=== PATIENT | female | born 1975 | race Caucasian/White ===

== ENCOUNTER 2017-01-12 09:34 | Inpatient (IN) ==
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
[2017-01-12] MEDS ORDERED: LACTATED RINGERS 1,000 ML IV ONE ×2 (10:23→10:53)
[2017-01-12] MEDS ORDERED: HYDROmorphone 2 MG/ML SYRINGE IV ONE (10:39)
[2017-01-12] MEDS ORDERED: ACETAMINOPHEN 500 MG TABLET PO ONE (10:39)
[2017-01-12] MEDS ORDERED: ONDANSETRON 4 MG/2 ML VIAL IV ONE (10:40)
[2017-01-12] MEDS ORDERED: cefTRIAXone 1 GM in DEXTROSE 5% IN WATER 50 ML IV ONE ×2 (10:42→14:15)
[2017-01-12] MEDS ORDERED: IBUPROFEN 600 MG TABLET PO ONE (10:43)
[2017-01-12 10:53] LABS: Mean Cell Volume 91.2 fL (80.0-100.0); Mean Corpuscular HGB Conc 33.2 g/dL (31.0-36.0); Mean Corpuscular Hemoglobin 30.2 pg (26.0-34.0); Platelet Count 394 K/mcL (140-440); RBC 4.43 M/mcL (4.00-5.20); Red Cell Distribution Width 14.8 % (11.5-14.5)
[2017-01-12 10:58] LABS: Appearance,Urine CLOUDY; Bacteria,Urine MOD /hpf (0); Bilirubin,Urine NEG (NEG); Color,Urine YELLOW; Glucose,Urine (UA) NEGATIVE (NEG); Leukocyte Esterase,Urine 500 /uL (NEG); Mucus,Urine MANY /hpf (0); Nitrate,Urine POS (NEG); Protein,Urine 100 mg/dL (NEG); Specific Gravity,Urine 1.017 (1.000-1.035); Urine Blood 0.2 mg/dL (<0.03); Urine RBC 20 /hpf (0-1); Urine Squamous Epithelial Cell 1 /hpf (0-4); Urine WBC > 182 /hpf (0-4)
[2017-01-12 11:09] LABS: ALT/SGPT 97 U/l (0-40); Albumin 3.8 gm/dL (3.2-5.2); Albumin/Globulin Ratio 1.1 (1.0-2.3); Alkaline Phosphatase 143 U/L (39-117); Blood Urea Nitrogen 12 mg/dl (6-20)
[2017-01-12] MEDS ORDERED: CIPROFLOXACIN 400 MG/200 ML BAG IV ONE (11:10)
[2017-01-12 11:33] LABS: C-Reactive Protein 35.1 mg/dl (0.0-0.8)
[2017-01-12 11:44] LABS: Anisocytosis FEW (NONE SEEN); Band Neutrophils % 17 % (0-10); Lymphocytes % 7 % (15-49); Monocytes % (Manual) 9 % (1-12); Platelet Estimate NORMAL (NORMAL); RBC Morphology ABNORM (NORMAL); Segmented Neutrophils % 67 % (38-78)
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
[2017-01-12] MEDS ORDERED: POTASSIUM CHLORIDE 20 MEQ in 0.9 % SODIUM CHLORIDE 1,000 ML IV SCH (13:44)
[2017-01-12] MEDS ORDERED: ONDANSETRON 4 MG/2 ML VIAL IV PRN (13:44)
[2017-01-12] MEDS ORDERED: ACETAMINOPHEN 325 MG TABLET PO PRN (13:44)
[2017-01-12] MEDS ORDERED: DOCUSATE SODIUM 100 MG CAPSULE PO PRN (13:44)
[2017-01-12] MEDS ORDERED: MAGNESIUM HYDROXIDE 30 ML ORAL.SUSP PO PRN (13:44)
[2017-01-12] MEDS: NACL 0.9% W/KCL 20MEQ 1,000 ML IV SCH ×2 (14:20→23:27)
--- NOTE | 2017-01-12 17:35 | Ultrasound Report ---
CLINICAL INFORMATION: Elevated white blood cell count, fever and tachycardia right flank pain COMPARISON: Abdomen and pelvic CT 10/22/2011 FINDINGS: Liver is mildly enlarged vertical dimension of 16.5 cm. No focal lesions but there is equivocal periportal triad edema. Gallbladder and bile ducts are normal CBD measures 4 mm. Both kidneys are mildly enlarged right is 13.7 x 7 cm the left is 12 x 6 cm. Parenchymal echotexture is elevated suggesting medical renal disease. The 2.5 cm complex fluid collection in the superior pole of the right kidney which may represent a renal abscess. 1.2 cm cyst is noted in the mid left kidney. The spleen is surgically removed but there is a 3.6 cm sessile three spleen which is unchanged from the previous CT. The pancreas aorta and IVC are normal. IMPRESSION: 2.5 cm complex fluid collection superior pole the right kidney which may represent a renal abscess. Suggest abdominal CT.If patient cannot tolerate IV contrast due to renal insufficiency, suggest abdominal MRI Elevated renal parenchymal echotexture compatible with medical renal disease. If patient cannot tolerate IV contrast acute renal insufficiency, suggest abdominal MRI Mild hepatic enlargement with possible periportal triad edema. This will also be assessed with either CT or MR. Splenectomy changes with accessory spleen stable from prior CT Interpreted and Authenticated by: Genaro Mistry 01/12/17
[2017-01-12] MEDS: 0.9 % SODIUM CHLORIDE 10 ML SYRINGE IV SCH ×2 (18:36→21:02)
[2017-01-12] MEDS ORDERED: KETOROLAC 15 MG/ML VIAL IV PRN (18:44)
[2017-01-12] MEDS ORDERED: KETOROLAC 15 MG/ML VIAL ONE (19:26)
[2017-01-12] MEDS ORDERED: DOXYCYCLINE HYCLATE 100 MG TABLET.ORL PO SCH (21:00)
[2017-01-12] MEDS ORDERED: HEPARIN 5,000 UNIT/ML VIAL SQ SCH (21:00)
[2017-01-13] MEDS ORDERED: NACL 0.9% W/KCL 20MEQ 1,000 ML IV SCH ×3 (00:31→03:41)
[2017-01-13] MEDS ORDERED: 0.9 % SODIUM CHLORIDE 500 ML IV ONE (00:43)
[2017-01-13 01:34] LABS: Mean Cell Volume 90.3 fL (80.0-100.0); Mean Corpuscular HGB Conc 33.8 g/dL (31.0-36.0); Mean Corpuscular Hemoglobin 30.5 pg (26.0-34.0); Platelet Count 295 K/mcL (140-440); RBC 3.45 M/mcL (4.00-5.20); Red Cell Distribution Width 14.9 % (11.5-14.5)
[2017-01-13 01:56] LABS: ALT/SGPT 56 U/l (0-40); Albumin 2.7 gm/dL (3.2-5.2); Alkaline Phosphatase 132 U/L (39-117); Bilirubin,Direct 0.4 mg/dL (0.0-0.3); Blood Urea Nitrogen 14 mg/dl (6-20); Gamma Glutamyl Transpeptidase 26 U/L (5-36); Magnesium 1.6 mg/dL (1.6-2.5); Uric Acid 2.2 mg/dL (2.5-8.0)
[2017-01-13 02:03] LABS: Anisocytosis 1+ (NONE SEEN); Band Neutrophils % 14 % (0-10); Lymphocytes % 9 % (15-49); Monocytes % (Manual) 1 % (1-12); Platelet Estimate NORMAL (NORMAL); RBC Morphology ABNORM (NORMAL); Segmented Neutrophils % 76 % (38-78)
[2017-01-13] MEDS ORDERED: KETOROLAC 15 MG/ML VIAL IV PRN ×2 (03:41→15:01)
[2017-01-13] MEDS ORDERED: NOREPINEPHRINE BITARTRATE 8 MG in 0.9 % SODIUM CHLORIDE 242 ML IV SCH (03:41)
[2017-01-13] MEDS ORDERED: ONDANSETRON 4 MG/2 ML VIAL IV PRN ×2 (03:41→15:01)
[2017-01-13] MEDS ORDERED: MAGNESIUM HYDROXIDE 30 ML ORAL.SUSP PO PRN ×2 (03:41→15:01)
[2017-01-13] MEDS ORDERED: 0.9 % SODIUM CHLORIDE 250 ML IV SCH (03:41)
[2017-01-13] MEDS ORDERED: DOCUSATE SODIUM 100 MG CAPSULE PO PRN ×2 (03:41→15:01)
[2017-01-13] MEDS ORDERED: ACETAMINOPHEN 325 MG TABLET PO PRN (03:41)
[2017-01-13] MEDS ORDERED: 0.9 % SODIUM CHLORIDE 1,000 ML IV ONE (03:53)
[2017-01-13] MEDS: NACL 0.9% W/KCL 20MEQ 1,000 ML IV SCH ×5 (04:31→22:57)
[2017-01-13] MEDS: 0.9 % SODIUM CHLORIDE 10 ML SYRINGE IV SCH ×3 (05:42→21:00)
[2017-01-13] MEDS ORDERED: NOREPINEPHRINE BITARTRATE 8 MG in 0.9 % SODIUM CHLORIDE 242 ML IV PRN ×2 (07:00→15:01)
[2017-01-13 07:02] LABS: Basophils # (Auto) 0 K/mcL (0.0-0.3); Basophils % (Auto) 0.1 % (0.0-2.0); Eosinophils # (Auto) 0.2 K/mcL (0.0-0.7); Granulocytes % (Auto) 82.1 % (38.0-78.0); Lymphocytes # (Auto) 2.3 K/mcL (1.5-4.8); Lymphocytes % (Auto) 10.2 % (15.5-49.0); Mean Corpuscular HGB Conc 33.8 g/dL (31.0-36.0); Mean Corpuscular Hemoglobin 30.8 pg (26.0-34.0); Monocytes # (Auto) 1.5 K/mcL (0.1-0.9); Monocytes % (Auto) 6.6 % (1.0-12.0); Platelet Count 294 K/mcL (140-440); RBC 3.35 M/mcL (4.00-5.20); Red Cell Distribution Width 14.8 % (11.5-14.5)
[2017-01-13 07:39] LABS: ALT/SGPT 57 U/l (0-40); Albumin 2.3 gm/dL (3.2-5.2); Albumin/Globulin Ratio 0.9 (1.0-2.3); Alkaline Phosphatase 108 U/L (39-117); Bilirubin,Direct 0.6 mg/dL (0.0-0.3); Blood Urea Nitrogen 13 mg/dl (6-20); Gamma Glutamyl Transpeptidase 28 U/L (5-36); Magnesium 1.4 mg/dL (1.6-2.5)
[2017-01-13] MEDS ORDERED: IOPAMIDOL 100 ML BOTTLE IJ ONE (08:05)
[2017-01-13] MEDS ORDERED: MAGNESIUM SULFATE 2 GM/50 ML BAG IV ONE (08:35)
--- NOTE | 2017-01-13 08:56 | Cat Scan Report ---
CLINICAL INFORMATION: Elevated white blood cell count, fever, vomiting and abdominal pain COMPARISON: Abdomen and pelvic CT from 10/22/2011. TECHNIQUE: Following enteric contrast, 80 cc of Isovue-300 were injected intravenously, and 60 seconds later, 2.5 mm helical slices were obtained from the mid heart through the subtrochanteric regions. Following reconstruction, 2.5 mm sagittal, coronal and axial reformatted images were processed and reviewed at bone, lung and soft tissue windows. Five minutes later, 5 mm helical slices were obtained from the mid heart through the kidneys and viewed at soft tissue windows. FINDINGS: Small bilateral pleural effusions are new from previous study. There is mild patchy airspace disease in both inferior lung bases which is likely atelectasis. The heart is normal in size without evidence of asymmetric right chamber enlargement.. Images through the abdomen show mild diffuse liver enlargement with decreased attenuation and portal triad edema - a new finding. There is also a [id number] amount of ascites within the abdomen and pelvis - most prominent in the deep true pelvis. No focal hepatic lesions. The gallbladder and bile ducts are normal: CBD is 5 mm. The pancreas, both adrenal glands, and left kidney are unremarkable. 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 There are numerous vague low-attenuation wedge-shaped regions throughout the cortex and medulla of the right kidney which has resulted in right renal enlargement. Findings are most compatible with severe pyelonephritis. No evidence of abscess. Both upper collecting systems, ureters and urinary bladder are normal. Images should the pelvis show urinary bladder to be normal. Uterus is anteverted and enlarged measuring 10 x 5.7 cm IUD is seen in the endometrial cavity. The myometrium shows shows low-attenuation suggesting adenomyosis. It is identical to the 2012 study. There is a 16 mm simple cyst in the left ovary. Bone windows show no osseous abnormality IMPRESSION: 1. Mild enlargement of the right kidney with multiple vague wedge-shaped low-attenuation regions scattered throughout the renal parenchyma - highly suspicious for severe right pyelonephritis. There is no evidence of abscess. 2. Mild hepatomegaly with diffuse decreased attenuation and moderate portal triad edema. This is likely related to primary hepatic inflammation (viral, drug related, hepatotoxins or primary steatohepatitis). The other potential cause for this pattern would be elevated right heart pressures resulting in congestive hepatopathy. Suggest echocardiogram to exclude this possibility. 3. Small/moderate ascites likely related to hepatocellular disease 4. Small bilateral pleural effusions and minor bibasilar airspace disease likely atelectasis 5. Moderately enlarged anteflexed uterus with low attenuation in the myometrium stable since 2012. Given the radiographic stability, this likely indicates adenomyosis and/or fibroids Interpreted and Authenticated by: Genaro Mistry 01/13/17
[2017-01-13] MEDS ORDERED: DOXYCYCLINE HYCLATE 100 MG TABLET.ORL PO SCH (09:00)
[2017-01-13] MEDS ORDERED: HEPARIN 5,000 UNIT/ML VIAL SQ SCH (09:00)
[2017-01-13] MEDS ORDERED: cefTRIAXone 2 GM in DEXTROSE 5% IN WATER 50 ML IV SCH ×2 (09:00)
[2017-01-13] MEDS ORDERED: FLU VACC QS2017-18 36MOS UP/PF 60 MCG/0.5 ML SYRINGE IM ONE (10:00)
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
[2017-01-13] MEDS: ACETAMINOPHEN 325 MG TABLET PO PRN (16:33)
[2017-01-13] MEDS: 0.9 % SODIUM CHLORIDE 250 ML IV SCH (16:34)
[2017-01-13] MEDS: CIPROFLOXACIN 400 MG/200 ML BAG IV SCH (17:03)
[2017-01-13] MEDS: DOXYCYCLINE HYCLATE 100 MG TABLET.ORL PO SCH (20:27)
[2017-01-13] MEDS: HEPARIN 5,000 UNIT/ML VIAL SQ SCH (20:36)
[2017-01-13] MEDS ORDERED: CYCLOBENZAPRINE 10 MG TABLET PO PRN (20:57)
[2017-01-13] MEDS ORDERED: LORazepam 0.5 MG TABLET PO PRN (20:58)
[2017-01-14] MEDS: ACETAMINOPHEN 325 MG TABLET PO PRN (03:59)
[2017-01-14] MEDS: NACL 0.9% W/KCL 20MEQ 1,000 ML IV SCH ×4 (05:05→19:46)
[2017-01-14] MEDS: 0.9 % SODIUM CHLORIDE 10 ML SYRINGE IV SCH ×3 (05:06→23:33)
[2017-01-14] MEDS: 0.9 % SODIUM CHLORIDE 250 ML IV SCH (05:06)
[2017-01-14 05:50] LABS: Basophils # (Auto) 0.1 K/mcL (0.0-0.3); Basophils % (Auto) 0.4 % (0.0-2.0); Eosinophils # (Auto) 0.3 K/mcL (0.0-0.7); Eosinophils % (Auto) 1.7 % (0.0-7.0); Granulocytes % (Auto) 75.8 % (38.0-78.0); Lymphocytes # (Auto) 2.4 K/mcL (1.5-4.8); Lymphocytes % (Auto) 15.2 % (15.5-49.0); Mean Cell Volume 91.7 fL (80.0-100.0); Mean Corpuscular HGB Conc 33.2 g/dL (31.0-36.0); Mean Corpuscular Hemoglobin 30.4 pg (26.0-34.0); Monocytes # (Auto) 1.1 K/mcL (0.1-0.9); Monocytes % (Auto) 6.9 % (1.0-12.0); Platelet Count 293 K/mcL (140-440); Red Cell Distribution Width 15.2 % (11.5-14.5)
[2017-01-14 06:21] LABS: ALT/SGPT 56 U/l (0-40); Albumin/Globulin Ratio 0.7 (1.0-2.3); Alkaline Phosphatase 144 U/L (39-117); Bilirubin,Direct 0.3 mg/dL (0.0-0.3); Blood Urea Nitrogen 12 mg/dl (6-20); Gamma Glutamyl Transpeptidase 42 U/L (5-36); Magnesium 1.9 mg/dL (1.6-2.5); Uric Acid 1.8 mg/dL (2.5-8.0)
[2017-01-14] MEDS ORDERED: cefTRIAXone 2 GM VIAL IV SCH ×2 (09:00)
[2017-01-14] MEDS: CIPROFLOXACIN 400 MG/200 ML BAG IV SCH ×2 (09:20→21:04)
[2017-01-14] MEDS: DOXYCYCLINE HYCLATE 100 MG TABLET.ORL PO SCH (09:20)
[2017-01-14] MEDS: HEPARIN 5,000 UNIT/ML VIAL SQ SCH ×2 (09:21→21:04)
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
[2017-01-14] MEDS ORDERED: MAGNESIUM HYDROXIDE 30 ML ORAL.SUSP PO PRN (14:22)
[2017-01-14] MEDS ORDERED: CYCLOBENZAPRINE 10 MG TABLET PO PRN (14:22)
[2017-01-14] MEDS ORDERED: 0.9 % SODIUM CHLORIDE 250 ML IV SCH (14:22)
[2017-01-14] MEDS ORDERED: LORazepam 0.5 MG TABLET PO PRN (14:22)
[2017-01-14] MEDS ORDERED: KETOROLAC 15 MG/ML VIAL IV PRN (14:22)
[2017-01-14] MEDS ORDERED: ONDANSETRON 4 MG/2 ML VIAL IV PRN (14:22)
[2017-01-14] MEDS ORDERED: DOCUSATE SODIUM 100 MG CAPSULE PO PRN (14:22)
[2017-01-14] MEDS ORDERED: FUROSEMIDE 20 MG/2 ML VIAL IV ONE ×2 (20:30→21:06)
[2017-01-15] MEDS: NACL 0.9% W/KCL 20MEQ 1,000 ML IV SCH ×3 (02:03→19:50)
[2017-01-15] MEDS: ACETAMINOPHEN 325 MG TABLET PO PRN (04:18)
[2017-01-15 04:57] LABS: Basophils # (Auto) 0.1 K/mcL (0.0-0.3); Basophils % (Auto) 0.4 % (0.0-2.0); Eosinophils # (Auto) 0.2 K/mcL (0.0-0.7); Eosinophils % (Auto) 1.1 % (0.0-7.0); Granulocytes % (Auto) 64.7 % (38.0-78.0); Lymphocytes # (Auto) 3.2 K/mcL (1.5-4.8); Lymphocytes % (Auto) 21.3 % (15.5-49.0); Mean Cell Volume 89.4 fL (80.0-100.0); Mean Corpuscular HGB Conc 33.5 g/dL (31.0-36.0); Monocytes # (Auto) 1.9 K/mcL (0.1-0.9); Monocytes % (Auto) 12.5 % (1.0-12.0); Platelet Count 317 K/mcL (140-440); RBC 3.83 M/mcL (4.00-5.20); Red Cell Distribution Width 15.6 % (11.5-14.5)
[2017-01-15 06:13] LABS: ALT/SGPT 61 U/l (0-40); Albumin 2.2 gm/dL (3.2-5.2); Albumin/Globulin Ratio 0.6 (1.0-2.3); Alkaline Phosphatase 180 U/L (39-117); Bilirubin,Direct < 0.2 mg/dL (0.0-0.3); Blood Urea Nitrogen 9 mg/dl (6-20); Gamma Glutamyl Transpeptidase 66 U/L (5-36); Magnesium 1.5 mg/dL (1.6-2.5); Uric Acid 2.4 mg/dL (2.5-8.0)
[2017-01-15] MEDS: 0.9 % SODIUM CHLORIDE 10 ML SYRINGE IV SCH ×3 (06:35→21:23)
[2017-01-15] MEDS: CIPROFLOXACIN 400 MG/200 ML BAG IV SCH ×2 (08:34→21:22)
[2017-01-15] MEDS: HEPARIN 5,000 UNIT/ML VIAL SQ SCH ×2 (08:34→21:22)
[2017-01-15] MEDS: cefTRIAXone 2 GM VIAL IV SCH (10:46)
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
[2017-01-15 17:46] LABS: Hepatitis A Antibody IgM NON REACTIVE (NEGATIVE); Hepatitis B Core IgM NON REACTIVE (NEGATIVE); Hepatitis B Surface Antigen NEGATIVE (NEGATIVE); Hepatitis C Virus Antibody NON REACTIVE (NEGATIVE)
[2017-01-16] MEDS: ACETAMINOPHEN 325 MG TABLET PO PRN (01:17)
[2017-01-16] MEDS: 0.9 % SODIUM CHLORIDE 10 ML SYRINGE IV SCH (05:30)
[2017-01-16 06:27] LABS: Basophils # (Auto) 0 K/mcL (0.0-0.3); Basophils % (Auto) 0.4 % (0.0-2.0); Eosinophils # (Auto) 0.1 K/mcL (0.0-0.7); Eosinophils % (Auto) 0.9 % (0.0-7.0); Lymphocytes % (Auto) 33.2 % (15.5-49.0); Mean Cell Volume 89.8 fL (80.0-100.0); Mean Corpuscular HGB Conc 33.6 g/dL (31.0-36.0); Mean Corpuscular Hemoglobin 30.2 pg (26.0-34.0); Monocytes # (Auto) 1.9 K/mcL (0.1-0.9); Monocytes % (Auto) 15.5 % (1.0-12.0); Platelet Count 325 K/mcL (140-440); RBC 3.56 M/mcL (4.00-5.20); Red Cell Distribution Width 15.9 % (11.5-14.5)
[2017-01-16 06:45] LABS: ALT/SGPT 43 U/l (0-40); Albumin 2.2 gm/dL (3.2-5.2); Albumin/Globulin Ratio 0.6 (1.0-2.3); Alkaline Phosphatase 145 U/L (39-117); Bilirubin,Direct < 0.2 mg/dL (0.0-0.3); Blood Urea Nitrogen 6 mg/dl (6-20); Gamma Glutamyl Transpeptidase 62 U/L (5-36); Magnesium 1.6 mg/dL (1.6-2.5); Uric Acid 2.4 mg/dL (2.5-8.0)
[2017-01-16] MEDS: NACL 0.9% W/KCL 20MEQ 1,000 ML IV SCH (07:08)
[2017-01-16] MEDS ORDERED: NACL 0.9% W/KCL 20MEQ 1,000 ML IV SCH (08:30)
[2017-01-16] MEDS: HEPARIN 5,000 UNIT/ML VIAL SQ SCH (09:37)
[2017-01-16] MEDS: CIPROFLOXACIN 400 MG/200 ML BAG IV SCH (09:37)
[2017-01-16] MEDS: cefTRIAXone 2 GM VIAL IV SCH (09:37)
--- NOTE | 2017-01-16 10:17 | Discharge Summary ---
Medical - DS: Prov Patient information: Note initiated : 01/16/17 at 10:17 am Patient: Duane Banegas a 41 y/o F admitted on 01/12/17 for Headache, Fever, Vomiting/Sepsis, UTI. Date of admission: 01/12/17 13:10 Discharge date: 01/16/17 Primary care physician: Raffi Valenzuela Admitting clinician: Nolvia Baker Consults: 01/12/17 11:37 Consult to Physician [CONS] Stat Comment: Consulting Provider: Nolvia Baker Reason For Exam: Physician to Consult 01/13/17 15:01 Consult to Physician [CONS] Routine Comment: pyelonephritis Consulting Provider: Colby Bryant Reason For Exam: Physician to Consult Attending physician on discharge: Nolvia Baker Medical - DS: Meds - Discharge Medications Prescriptions: cefTRIAXone [Rocephin] 2 gm IV Q24H #6 vial Ciprofloxacin HCl [Cipro] 500 mg PO BID #14 tab Corticotropin [Adrenocorticotrophic Hormone] 0.01 gm MC Q2W #1 powder Active and Home Medications: Discharge medications: Rocephin 2 g IV every 24 hours, 6 more days, then followed by 1 week of oral antibiotics. Ciprofloxacin 500 mg p.o. twice daily for 7 more days Tylenol 650 mg every 6 hours as needed Corticotropin, dosed per rheumatology Golimumab 12.5 mg, dosed per rheumatology Previous home Medications corticotropin SUB-Q 02/18/16 [History Confirmed 12/06/16 Last Taken Unknown] golimumab 12.5 mg/mL intravenous solution IV 04/02/16 [History Confirmed Last Taken Unknown] Medical - DS: Hosp Hospital course: Ms. Banegas is a 41 year old F January 12, 2017: History of present illness: Ms. Banegas is a 41 year old female with a history of ankylosing spondylitis, who has been on a series of immunosuppressive drugs over the course of her life, started feeling poorly a few days ago. She says over a day or so she developed fever, whole body myalgias, severe pain at the top of her head, which included pain in her right face, her right neck, her right chest, her right flank and right side of her abdomen. She has had some nausea but no vomiting. She also notes suprapubic tenderness. She also notes her urine seems to have had increased odor lately. Also, of note, her boyfriend was recently diagnosed with gonorrhea. She says she was not screened for this or treated for it. She denies any vaginal discharge. In the emergency room she was found to have a temperature of 101.6, and a white blood cell count of 31,000. She had brief hypotension, that responded to IV fluids. She was tachycardic as well. Urinalysis was suggestive of UTI. She otherwise notes that she has not been dizzy, and has had not had new eye symptoms. Her right ear has been aching a bit. She has not really had a sore throat or a cough. She denies any chest pain or palpitations or shortness of breath. She says she has chronically irregular bowel habits, and has not noticed any real change with constipation or diarrhea. She has an Mirena IUD in place, and is about due to have that changed. She says she really does not have regular menses anymore since that was placed. January 13: During the night, the patient's blood pressure drifted down, and nursing staff became very concerned that she was getting septic. They called a rapid response code, and gave her IV fluid boluses and checked labs and EKGs. I was not as concerned about her lower blood pressures, as her normal systolic blood pressure runs between 90 and 100. However, she was feeling quite poorly, so was ultimately moved to the intensive care unit for closer monitoring. I did order levo fed for blood pressure support, but it turned out that was not needed , as she responded well to increased IV fluids. Currently her blood cultures are growing a gram-negative elias. ID is still pending. Urine culture is also still pending. Today, she continues to complain of generalized pain that starts from the top of her head and goes all the way down to the right side of her pelvis. She has a hard time being more specific than that, but she says she generally feels ill. She otherwise denies fever chills, overt chest pain or palpitations, shortness of breath or cough. She has generalized abdominal discomfort, but no nausea or vomiting, diarrhea or constipation, or dysuria. She did undergo CT of the abdomen today which shows severe right-sided pyelonephritis, without obvious abscess. She also has mild hepatomegaly with decreased attenuation and moderate portal triad edema. This suggests some sort of hepatic insult. There is also a small amount of ascites, and small bilateral pleural effusions. January 14: The patient is feeling a bit better today. She still has a headache, but it is generally improved compared to yesterday. Her abdominal discomfort is also gradually getting better compared to yesterday. White blood cell count continues to improve. Liver enzymes remain borderline elevated. She otherwise denies fever chills, chest pain or shortness of breath, nausea or vomiting, dysuria. January 15: The patient is still having low-grade fevers, with T-max of 100.4 over the last 24 hours. She continues to occasionally be tachycardic and tachypneic. She was feeling quite swollen and puffy last night, and was far ahead on IV fluids, so was given 1 dose of IV Lasix. She did diurese. She is quite sleepy this morning. It looks like she only received 1 dose of morphine during the night. She arouses somewhat, and seems to indicate she is having less pain today. She otherwise seems more interested in sleeping at this current time. January 16: Hospital course: The patient was admitted with fever of uncertain origin. Follow-up study showed severe right-sided pyelonephritis. She was treated empirically with high -dose IV Rocephin, and then later had IV ciprofloxacin added as well, for gram- negative bacteremia. Her white blood cell count has been slow to defervesce, but she is making steady progress daily. She has continued to feel terrible the first couple of days, with pain extending from her head down to her pelvis mainly on the right side. This was a little puzzling, but as of today she says her pain is much improved, her appetite is better, and she feels well enough to return home. She denies recent fever or chills, chest pain or shortness of breath, abdominal pain, nausea or vomiting, diarrhea or constipation or dysuria. On exam: She is awake and smiling this morning. She is in better spirits. Neck is supple without obvious lymphadenopathy or JVD. Cardiac exam shows regular rate and rhythm. Lungs are clear to auscultation. Abdomen: Abdomen is quite a bit less tender. Extremities show no edema. Neurologic exam: Awake and alert.. A/P Narrative: #1. Infectious disease. SIRS. Patient presents with marked leukocytosis, fever, general myalgias. Urinalysis is suggestive of UTI. Patient also has a known recent exposure to Neisseria gonorrhea. 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 She is improving every day on the IV Rocephin plus Cipro, for her severe right pyelonephritis. Her gonorrhea screen did come back positive, but this should also be covered by the Rocephin. The lab later notified us that the screening test might have been inaccurate. -HIV screen is negative. Syphilis is pending. Hepatitis panel was ordered for elevated LFTs, and this was negative as well. -Culture is growing E. coli, as noted above. -She is feeling better, so I think can go home, but because of the severity of her illness, I would like her to continue with daily outpatient IV antibiotics for another 6 days, probably followed by a week of oral antibiotics. #2. CODE STATUS: Full code. 3. DVT prophylaxis: Subcu heparin. 4. Rheumatologic. Ankylosing spondylitis, on chronic immunosuppressive therapy. She is advised to touch base with her stamp pad maker, to let him know about her infection, prior to receiving her next doses of IV arthritis medications. #5. GI. -Her studies were also reviewed with Dr. Mistry from radiology. He is worried about her enlarged liver, and suggested an echocardiogram to rule out CHF. Echo result is pending. Approximately 35 minutes has been spent so far today, reviewing test results, interviewing and examining her, reviewing plan of care with case management, and writing orders. Discharge diagnosis: Severe right-sided pyelonephritis. Immunosuppression. - Time Spent with Patient Total time spent providing and/or coordinating discharge services: Greater than 30 minutes Medical - DS: Exam - Constitutional Vitals: Vital Signs Temp Pulse Pulse Resp BP BP BP 01/16/17 07:51 97.7 F 60 16 110/82 01/16/17 04:00 98.4 F 85 20 111/76 01/15/17 23:00 98.7 F 100 H 24 H 116/80 01/15/17 19:50 98.5 F 96 H 28 H 114/80 01/15/17 15:58 98.3 F 16 112/70 01/15/17 13:01 96.7 F L 87 16 100/64 Pulse Ox 01/16/17 07:51 93 01/16/17 04:00 96 01/15/17 23:00 99 01/15/17 19:50 98 01/15/17 15:58 97 01/15/17 13:01 96 Intake and Output 01/15/17 01/16/17 01/16/17 22:59 05:59 13:59 Intake Total Output Total 650 / 650 Balance -650 / -650 Intake: IV NaCl 0.9% W/KCl 20Meq 1000ML 1, 000 ml @ 100 mls/hr IV .Q10H [facility] Rx#:[id number] Oral Output: Void Amount 650 / 650 Other: # Voids 1 Weight Medical - DS: Data Labs on day of discharge: Labs from last 24 hours 01/16/17 01/16/17 01/15/17 04:15 04:15 Unknown WBC 12.1 H RBC 3.56 L Hgb 10.8 L Hct 32.0 L MCV 89.8 MCH 30.2 MCHC 33.6 RDW 15.9 H Plt Count 325 MPV 9.3 Gran % 50.0 Lymph % (Auto) 33.2 [place] % (Auto) 15.5 H Eos % (Auto) 0.9 Baso % (Auto) 0.4 Gran # 6.1 Lymph # (Auto) 4.0 [place] # (Auto) 1.9 H Eos # (Auto) 0.1 Baso # (Auto) 0 VBG Lactic Acid Sodium 139 Potassium 4.0 Chloride 107 Carbon Dioxide 20 L Anion Gap 12.0 BUN 6 Creatinine 0.7 GFR Calculation 108 Glucose 73 Uric Acid 2.4 L Calcium 7.9 L Phosphorus 3.0 Magnesium 1.6 Total Bilirubin 0.3 Direct Bilirubin < 0.2 GGT 62 H AST 32 ALT 43 H Alkaline Phosphatase 145 H Lactate Dehydrogenase 168 Total Protein 5.7 L Albumin 2.2 L Globulin 3.5 Albumin/Globulin Ratio 0.6 L Triglycerides 131 Procalcitonin 0.35 Hepatitis A IgM Ab Hep Bs Antigen Hep B Core IgM Ab Hepatitis C Antibody 01/15/17 01/15/17 16:34 16:34 WBC RBC Hgb Hct MCV MCH MCHC RDW Plt Count MPV Gran % Lymph % (Auto) [place] % (Auto) Eos % (Auto) Baso % (Auto) Gran # Lymph # (Auto) [place] # (Auto) Eos # (Auto) Baso # (Auto) VBG Lactic Acid 0.9 Sodium Potassium Chloride Carbon Dioxide Anion Gap BUN Creatinine GFR Calculation Glucose Uric Acid Calcium Phosphorus Magnesium Total Bilirubin Direct Bilirubin GGT AST ALT Alkaline Phosphatase Lactate Dehydrogenase Total Protein Albumin Globulin Albumin/Globulin Ratio Triglycerides Procalcitonin Hepatitis A IgM Ab Non reactive Hep Bs Antigen Negative Hep B Core IgM Ab Non reactive Hepatitis C Antibody Non reactive Preliminary micro results at discharge 01/13/17 01:40 Blood Culture - Preliminary Blood 01/13/17 01:30 Blood Culture - Preliminary Blood 01/12/17 11:08 Blood Culture - Preliminary Blood 01/12/17 11:20 Blood Culture - Preliminary Blood Escherichia coli January 14: HIV 1 and 2 screens are negative. Syphilis screen is pending. Gonorrhea screen yesterday was reported as positive, but it appears to be also have a report from the lab saying that might not be a reliable test result. The chlamydia screen was negative. Blood cultures from January 12 are growing E. coli, resistant to tetracycline and Bactrim, but otherwise pansensitive, including to ceftriaxone and ciprofloxacin. Echocardiogram report is still pending. January 13: Lactic acid at 01:31 was slightly elevated at 2.3, and is back to normal at 0.7 at 05 50 this morning. Pro-calcitonin is again normal at 1.57 next Magnesium was low at 1.4 Blood cultures are growing a gram-negative bacillus. CT of the abdomen and pelvis: IMPRESSION: 1. Mild enlargement of the right kidney with multiple vague wedge-shaped low-attenuation regions scattered throughout the renal parenchyma - highly suspicious for severe right pyelonephritis. There is no evidence of abscess. 2. Mild hepatomegaly with diffuse decreased attenuation and moderate portal triad edema. This is likely related to primary hepatic inflammation (viral, drug related, hepatotoxins or primary steatohepatitis). The other potential cause for this pattern would be elevated right heart pressures resulting in congestive hepatopathy. Suggest echocardiogram to exclude this possibility. 3. Small/moderate ascites likely related to hepatocellular disease 4. Small bilateral pleural effusions and minor bibasilar airspace disease likely atelectasis 5. Moderately enlarged anteflexed uterus with low attenuation in the myometrium stable since 2011. Given the radiographic stability, this likely indicates adenomyosis and/or fibroids January 12: Abdominal ultrasound: IMPRESSION: 1. 2.5 cm complex fluid collection superior pole the right kidney which may represent a renal abscess. Suggest abdominal CT.If patient cannot tolerate IV contrast due to renal insufficiency, suggest abdominal MRI 2. Elevated renal parenchymal echotexture compatible with medical renal disease. If patient cannot tolerate IV contrast acute renal insufficiency, suggest abdominal MRI 3. Mild hepatic enlargement with possible periportal triad edema. This will also be assessed with either CT or MR. 4. Splenectomy changes with accessory spleen stable from prior CT CBC white blood cell count elevated at 31,000, hemoglobin 13, hematocrit 40, platelets 394,000, differential: RDW is elevated at 14.8, 17% bands, 67% neutrophils, abnormal RBC morphology. Lactic acid is normal at 1.3, pro calcitonin is normal at 1.04 Urinalysis shows 100 mg of protein, positive nitrates, 4 urobilinogen, 500 leukocyte esterase, 20 red blood cells, greater than 180 white blood cells, moderate bacteria Medical - DS: A/P - Patient/Caregiver Discharge Instructions Activity: increase activity as tolerated Diet: Regular Diet Additional Instructions: 1. Severe right-sided pyelonephritis. Please report to [facility] to receive IV antibiotics, daily at 9:00 am for the next 6 days. You have a Mid-Line. Flushing per protocol. Dressing change in 24 hours (Tuesday) and weekly. It was placed at 12:00 on 01/16/17. Call if you have any questions [phone] Please complete the prescription for oral antibiotics, ciprofloxacin, as prescribed. Please see your primary care provider sometime over the next week. You may need a course of oral antibiotics to follow the IV antibiotics. Call to set up an appointment 2. Ankylosing spondylitis. Please touch base with your stamp pad maker Dr Soto Fernandez . Your records have been sent to him, prior to receiving your next dose of IV rheumatology meds. Call to set up an appointment 3. Abnormal liver scan. The radiologist recommended an echocardiogram to see why the pressures in your liver vessels looked elevated. That test was done, but results are still pending. Please have Dr. Valenzuela retrieve those results. 4. Take your lab orders to the lab of your choice to have a CBC and Inpatient panel drawn on Tuesday. Prescriptions: cefTRIAXone [Rocephin] 2 gm IV Q24H #6 vial Ciprofloxacin HCl [Cipro] 500 mg PO BID #14 tab Corticotropin [Adrenocorticotrophic Hormone] 0.01 gm MC Q2W #1 powder Other Amb Orders: Complete Blood Count Time Frame: 1 Day, Location: Determined By Patient Inpatient Panel Time Frame: 1 Day, Location: Determined By Patient - Problem Maintenance (1) SIRS (systemic inflammatory response syndrome) Status: Acute (2) Leukocytosis Status: Acute (3) Urinary tract infection Status: Acute (4) History of splenectomy Status: Resolved (5) UTI (urinary tract infection) Status: Resolved - Follow up Plan Follow up with: Raffi Valenzuela MD [Primary Care Provider] - (Call on Tuesday for a hospital follow up) Disposition: Home, Self-Care Prognosis: Good Rehab Potential: Good Overall status at discharge: patient is progressing back to baseline Medical - DS: Qual - VTE Deep Vein Thrombosis/Pulmonary Embolism Present on Admission: No
[2017-01-16] MEDS ORDERED: 0.9 % SODIUM CHLORIDE 10 ML SYRINGE IV SCH (14:00)
== END 2017-01-16 13:30 | disposition home or self-care (01) | DRG 872 ==
LOC: ED 09:34 → MEDSUR 13:10 → ICU 01-13 03:40 → MEDSUR 01-14 18:00
PROVIDERS: ADMIT Internal Medicine; ATTEND Internal Medicine